=== PATIENT | female | born 1965 | race American Indian/Alaskan Native ===

== ENCOUNTER 2019-09-16 09:34 | Emergency (ER) | payer BC, OTHER ==
[2019-09-16] MEDS ORDERED: Lidocaine 2% Viscous Solution 15 ML Cup PO ONE (09:46)
[2019-09-16] MEDS ORDERED: Clindamycin HCl 150 MG Cap PO ONE (09:46)
[2019-09-16] MEDS ORDERED: Ibuprofen 800 MG Tab PO ONE (09:47)
[2019-09-16 09:50] VITALS: BP 158/116; PULSE 63
--- NOTE | 2019-09-16 09:51 | EDM.PDOC ---
Scribed by Malu Page 09/16/19 0951 for Don Vega MD ED HPI GENERAL MEDICAL PROBLEM - General Chief Complaint: ENT Problem Stated Complaint: TOOTHACHE Time Seen by Provider: 09/16/19 09:40 Source of Information: Reports: Patient, RN, RN Notes Reviewed History Limitations: Reports: No Limitations - History of Present Illness INITIAL COMMENTS - FREE TEXT/NARRATIVE: Patient presents to ER via POV with dental pain for several days. It began to swell today. Denies fever. Denies any drainage from the gum. Onset: Gradual Duration: Constant Location: Reports: Other (toothache) Quality: Reports: Ache Severity: Moderate Improves with: Reports: None Worsens with: Reports: None Associated Symptoms: Reports: No Other Symptoms Tooth/Teeth Pain Score (Numeric/FACES): 10 - Related Data Allergies Allergy/AdvReac Type Severity Reaction Status Date / Time cat dander Allergy Other Verified 09/16/19 09:47 cephalexin monohydrate Allergy Nausea Verified 09/16/19 09:47 [From Keflex] codeine Allergy Vomiting Verified 09/16/19 09:47 HAYFEVER Allergy Other Uncoded 09/16/19 09:47 Home Meds: Home Meds Hydrochlorothiazide 25 mg PO DAILY 01/28/15 [History] Lisinopril 12.5 mg PO DAILY 05/25/15 [History] Acetaminophen [Tylenol Extra Strength] 1,500 mg PO ONETIME PRN 08/29/16 [History ] Fluticasone Propionate 1 spray NASBOTH ASDIRECTED PRN 09/14/16 [History] Loratadine 10 mg PO DAILY PRN 09/14/16 [History] Polyethylene Glycol 3350 [Miralax] 17 g PO .[id number] PRN 09/14/16 [History] oxyCODONE HCl/Acetaminophen [Percocet 5-325 mg Tablet] 1 tab PO Q6H PRN [History] Fluocinonide [Lidex 0.05% Crm] 1 applic TOP ASDIRECTED 12/22/17 [History] Past Medical History HEENT History: Reports: Impaired Vision, Other (See Below) Other HEENT History: WEARS CORRECTIVE LENS Cardiovascular History: Reports: Hypertension Respiratory History: Reports: None Gastrointestinal History: Reports: None, Helicobacter Pylori Genitourinary History: Reports: None [employer] OPERATOR History: Reports: Musculoskeletal History: Reports: None, Other (See Below) Other Musculoskeletal History: herniated disc Neurological History: Reports: None Psychiatric History: Reports: None Endocrine/Metabolic History: Reports: Obesity/BMI 30+, Vitamin D Deficiency Hematologic History: Reports: None Immunologic History: Reports: None Oncologic (Cancer) History: Reports: None Dermatologic History: Reports: Eczema - Infectious Disease History Infectious Disease History: Reports: Chicken Pox, Helicobacter Pylori, Measles, Mumps - Past Surgical History Head Surgeries/Procedures: Reports: None HEENT Surgical History: Reports: Naso-Sinus Surgery, Tonsillectomy Cardiovascular Surgical History: Reports: None GI Surgical History: Reports: Cholecystectomy, Colonoscopy Female Surgical History: Reports: Section Musculoskeletal Surgical History: Reports: Carpal Tunnel, Other (See Below) Other Musculoskeletal Surgeries/Procedures:: RIGHT CARPAL TUNNEL Social & Family History - Family History HEENT: Reports: None Cardiac: Reports: Heart Failure, Hypertension Respiratory: Reports: Asthma GI: Reports: Diverticulitis : Reports: None OBGYN: Reports: None Musculoskeletal: Reports: Arthritis Neurological: Reports: None Psychiatric: Reports: None Endocrine/Metabolic: Reports: Diabetes, type II Hematologic: Reports: None Immunologic: Reports: None Dermatologic: Reports: Eczema Oncologic: Reports: None - Caffeine Use Caffeine Use: Reports: Coffee ED ROS ENT - Review of Systems Review Of Systems: Comprehensive ROS is negative, except as noted in HPI. ED EXAM, ENT - Physical Exam Exam: See Below Exam Limited By: No Limitations General Appearance: Alert, WD/WN, No Apparent Distress Ears: Normal External Exam Nose: Normal Inspection Mouth/Throat: Normal Lips, Dental Abcess (Rt maxillary premolar), Dental Pain, Dental Tenderness, Gum Swelling Head: Atraumatic, Normocephalic Neck: Normal Inspection Respiratory/Chest: No Respiratory Distress Cardiovascular: Regular Rate, Rhythm Course - Vital Signs Last Recorded V/S: Last Vital Signs Temp 97.9 F 09/16/19 09:48 Pulse 63 09/16/19 09:48 Resp 16 09/16/19 09:48 BP 158/116 H 09/16/19 09:48 Pulse Ox 100 09/16/19 09:48 - Orders/Labs/Meds Meds: Medications Discontinued Medications Generic Name Dose Route Start Last Admin Trade Name Freq PRN Reason Stop Dose Admin Clindamycin HCl 300 mg 09/16/19 09:46 Cleocin PO 09/16/19 09:47 ONETIME ONE Ibuprofen 800 mg 09/16/19 09:47 Motrin PO 09/16/19 09:48 ONETIME ONE Lidocaine HCl 15 ml 09/16/19 09:46 Xylocaine 2% Viscous PO 09/16/19 09:47 ONETIME ONE Departure - Departure Time of Disposition: 09:47 Disposition: Home, Self-Care 01 Condition: Good Clinical Impression: Dental abscess - Discharge Information *PRESCRIPTION DRUG MONITORING PROGRAM REVIEWED*: Not Applicable *COPY OF PRESCRIPTION DRUG MONITORING REPORT IN PATIENT KIMBERLEY: Not Applicable Instructions: Dental Abscess, [id number] Forms: ED Department Discharge Additional Instructions: RX: Clindamycin 300mg. RX: Viscus Lidocaine 2%. RX: Tylenol #3. Follow up with dentist tomorrow. Sepsis Event Note - Focused Exam Vital Signs: Vital Signs Temp Pulse Resp BP Pulse Ox 09/16/19 09:48 97.9 F 63 16 158/116 H 100 Date Exam was Performed: 09/16/19 Time Exam was Performed: 09:50 I have read and agree with the documentation that has been completed regarding this visit. By signing this record, I attest that the documentation was completed in my physical presence and is an accurate record of the encounter.
== END 2019-09-16 10:07 | disposition home or self-care (01) ==
LOC: DL.ED 09:34
DX: K04.7 Periapical abscess without sinus (principal); I10 Essential (primary) hypertension; E66.9 Obesity, unspecified; Z79.899 Other long term (current) drug therapy; Z88.5 Allergy status to narcotic agent; Z88.1 Allergy status to other antibiotic agents; Z91.09 Other allergy status, other than to drugs and biological substances
CPT/HCPCS: 99282; A9270

== ENCOUNTER 2019-09-16 17:10 | Emergency (ER) | payer BC, OTHER ==
[2019-09-16] MEDS ORDERED: Acetaminophen/HYDROcodone 325-10 MG Tab PO ONE (17:11)
[2019-09-16 17:26] VITALS: BP 151/69; PULSE 55
[2019-09-16] MEDS ORDERED: Sodium Chloride 0.9% 10 ML Syringe FLUSH PRN (17:31)
[2019-09-16] MEDS ORDERED: Sodium Chloride 0.9% 1,000 ML IV ONE (17:31)
[2019-09-16] MEDS ORDERED: Piperacillin/Tazobactam 4.5 GM in Sodium Chloride 0.9% 100 ML IV ONE (17:32)
[2019-09-16] MEDS ORDERED: diphenhydrAMINE 50 MG/ML SDV IVPUSH ONE (17:35)
[2019-09-16] MEDS ORDERED: Dexamethasone 4 MG/ML SDV IVPUSH ONE (17:35)
[2019-09-16] MEDS ORDERED: HYDROmorphone 1 MG/ML Syringe IVPUSH ONE (17:36)
[2019-09-16 18:18] LABS: ANION GAP 10.4; CHLORIDE,CL 106 mmol/L (101-111); SODIUM,NA 140 mmol/L (135-145)
--- NOTE | 2019-09-16 18:36 | EDM.PDOC ---
Scribed by Malu Page 09/16/19 7924 for Don Vega MD ED HPI GENERAL MEDICAL PROBLEM - General Chief Complaint: ENT Problem Stated Complaint: ABSESS Time Seen by Provider: 09/16/19 17:35 Source of Information: Reports: Patient, RN, RN Notes Reviewed History Limitations: Reports: No Limitations - History of Present Illness INITIAL COMMENTS - FREE TEXT/NARRATIVE: Patient presents to ER stating that her abscessed tooth has more swelling and more pain. She was evaluated this A.M. and sent home on antibiotics with instructions to return if any worse. Patient went home to take a nap, took 3 antibiotic tabs but woke up with increased pain and swelling. 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, NSAIDS Right Face/Facial Pain Score (Numeric/FACES): 8 - Related Data Allergies Allergy/AdvReac Type Severity Reaction Status Date / Time cat dander Allergy Other Verified 09/16/19 17:34 cephalexin monohydrate Allergy Nausea Verified 09/16/19 17:34 [From Keflex] codeine Allergy Vomiting Verified 09/16/19 17:34 HAYFEVER Allergy Other Uncoded 09/16/19 09:47 Home Meds: Home Meds Hydrochlorothiazide 25 mg PO DAILY 01/28/15 [History] Lisinopril 12.5 mg PO DAILY 05/25/15 [History] Acetaminophen [Tylenol Extra Strength] 1,500 mg PO ONETIME PRN 08/29/16 [History ] Fluticasone Propionate 1 spray NASBOTH ASDIRECTED PRN 09/14/16 [History] Loratadine 10 mg PO DAILY PRN 09/14/16 [History] Polyethylene Glycol 3350 [Miralax] 17 g PO .[id number] PRN 09/14/16 [History] oxyCODONE HCl/Acetaminophen [Percocet 5-325 mg Tablet] 1 tab PO Q6H PRN [History] Fluocinonide [Lidex 0.05% Crm] 1 applic TOP ASDIRECTED 12/22/17 [History] Past Medical History HEENT History: Reports: Impaired Vision, Other (See Below) Other HEENT History: WEARS CORRECTIVE LENS Cardiovascular History: Reports: Hypertension Respiratory History: Reports: None Gastrointestinal History: Reports: None, Helicobacter Pylori Genitourinary History: Reports: None [employer]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: Musculoskeletal History: Reports: None, Other (See Below) Other Musculoskeletal History: herniated disc Neurological History: Reports: None Psychiatric History: Reports: None Endocrine/Metabolic History: Reports: Obesity/BMI 30+, Vitamin D Deficiency Hematologic History: Reports: None Immunologic History: Reports: None Oncologic (Cancer) History: Reports: None Dermatologic History: Reports: Eczema - Infectious Disease History Infectious Disease History: Reports: Chicken Pox, Helicobacter Pylori, Measles, Mumps - Past Surgical History Head Surgeries/Procedures: Reports: None HEENT Surgical History: Reports: Naso-Sinus Surgery, Tonsillectomy Cardiovascular Surgical History: Reports: None GI Surgical History: Reports: Cholecystectomy, Colonoscopy Female Surgical History: Reports: Section Musculoskeletal Surgical History: Reports: Carpal Tunnel, Other (See Below) Other Musculoskeletal Surgeries/Procedures:: RIGHT CARPAL TUNNEL Social & Family History - Family History Family Medical History: Noncontributory HEENT: Reports: None Cardiac: Reports: Heart Failure, Hypertension Respiratory: Reports: Asthma GI: Reports: Diverticulitis : Reports: None OBGYN: Reports: None Musculoskeletal: Reports: Arthritis Neurological: Reports: None Psychiatric: Reports: None Endocrine/Metabolic: Reports: Diabetes, type II Hematologic: Reports: None Immunologic: Reports: None Dermatologic: Reports: Eczema Oncologic: Reports: None - Caffeine Use Caffeine Use: Reports: Coffee ED ROS ENT - Review of Systems Review Of Systems: Comprehensive ROS is negative, except as noted in HPI. ED EXAM, ENT - Physical Exam Exam: See Below Exam Limited By: No Limitations General Appearance: Alert, WD/WN, No Apparent Distress, Anxious Eye Exam: Bilateral Eye: EOMI, Normal Inspection, PERRL Ears: Normal External Exam. No: Mastoid Swelling, Mastoid Tenderness Nose: Normal Inspection, Normal Mucousa, No Blood Mouth/Throat: Normal Lips, Normal Oropharynx, Dental Abcess (Right maxillary premolar), Dental Pain, Dental Tenderness, Gum Swelling (Adj. to right maxillary premolar). No: Drooling, Hoarse Voice Head: Atraumatic, Normocephalic, Facial Swelling (Rt face swelling, not involving the periorbital area), Facial Tenderness Neck: Normal Inspection, Supple, Non-Tender, Full Range of Motion. No: Lymphadenopathy (L), Lymphadenopathy (R) Respiratory/Chest: No Respiratory Distress, Lungs Clear, Normal Breath Sounds, No Accessory Muscle Use, Chest Non-Tender Cardiovascular: Regular Rate, Rhythm, No Edema, No Murmur, Bradycardia Neurological: Alert, Oriented, CN II-XII Intact, Normal Cognition, Normal Gait, No Motor/Sensory Deficits Psychiatric: Normal Affect, Anxious Course - Vital Signs Last Recorded V/S: Last Vital Signs Temp 98.3 F 09/16/19 17:25 Pulse 55 L 09/16/19 17:25 Resp 16 09/16/19 17:25 BP 151/69 H 09/16/19 17:25 Pulse Ox 98 09/16/19 17:25 - Orders/Labs/Meds Orders: Active Orders 24 hr Category Date Time Status Peripheral IV Care [RC] . DIRECTED Care 09/16/19 17:31 Active Sodium Chloride 0.9% [Saline Flush] Med 09/16/19 17:31 Active 10 ml FLUSH ASDIRECTED PRN Peripheral IV Insertion Adult [OM.PC] Stat Oth 09/16/19 17:31 Ordered Medication Orders Sodium Chloride (Saline Flush) 10 ml FLUSH ASDIRECTED PRN PRN Reason: Keep Vein Open Labs: Laboratory Tests 09/16/19 09/16/19 09/16/19 Range/Units 17:52 17:52 17:52 WBC 13.0 H (5.0-10.0) 10^3/uL RBC 4.65 (4.2-5.4) 10^6/uL Hgb 14.1 (12.0-16.0) g/dL Hct 41.9 (37.0-47.0) % MCV 90.1 (80-100) fL MCH 30.3 (27.0-34.0) pg MCHC 33.7 (33.0-35.0) g/dL Plt Count 244 (150-450) 10^3/uL Neut % (Auto) 63.7 (42.2-75.2) % Lymph % (Auto) 26.4 (20.5-50.1) % [place] % (Auto) 8.2 H (2-8) % Eos % (Auto) 1.5 (1.0-3.0) % Baso % (Auto) 0.2 (0.0-1.0) % Sodium 140 (135-145) mmol/L Potassium 3.4 L (3.6-5.0) mmol/L Chloride 106 (101-111) mmol/L Carbon Dioxide 27.0 (21.0-31.0) mmol/L Anion Gap 10.4 BUN 12 (7-18) mg/dL Creatinine 0.7 (0.6-1.3) mg/dL Est Cr Clr Drug Dosing 83.63 mL/min Estimated GFR (MDRD) > 60 Glucose 99 (74-105) mg/dL Calcium 9.0 (8.4-10.2) mg/dl C-Reactive Protein 0.8 (0.0-1.3) mg/dL Meds: Medications Generic Name Dose Route Start Last Admin Trade Name Freq PRN Reason Stop Dose Admin Sodium Chloride 10 ml 09/16/19 17:31 Saline Flush FLUSH ASDIRECTED PRN Keep Vein Open Discontinued Medications Generic Name Dose Route Start Last Admin Trade Name Freq PRN Reason Stop Dose Admin Dexamethasone 20 mg 09/16/19 17:35 09/16/19 18:02 Dexamethasone IVPUSH 09/16/19 17:36 20 mg ONETIME ONE Administration Diphenhydramine HCl 25 mg 09/16/19 17:35 09/16/19 18:00 Benadryl IVPUSH 09/16/19 17:36 25 mg ONETIME ONE Administration Hydromorphone HCl 1 mg 09/16/19 17:36 09/16/19 17:47 Dilaudid IVPUSH 09/16/19 17:37 1 mg ONETIME ONE Administration Piperacillin Sod/Tazobactam 100 mls @ 200 mls/hr 09/16/19 17:32 09/16/19 18: 08 Sod 4.5 gm/ Sodium Chloride IV 09/16/19 18:01 200 mls/hr ONETIME ONE Administration Sodium Chloride 1,000 mls @ 999 mls/hr 09/16/19 17:31 09/16/19 17:47 Normal Saline IV 09/16/19 18:31 999 mls/hr .BOLUS ONE Administration Departure - Departure Time of Disposition: 19:00 Disposition: Home, Self-Care 01 Condition: Fair Clinical Impression: Dental abscess, Facial cellulitis - Discharge Information *PRESCRIPTION DRUG MONITORING PROGRAM REVIEWED*: No *COPY OF PRESCRIPTION DRUG MONITORING REPORT IN PATIENT KIMBERLEY: No Instructions: Dental Abscess, [id number], Cellulitis, Adult, Lqbu-[id number] Forms: ED Department Discharge Additional Instructions: Rx: Decadron 4mg Vicodin (Hydrocodone APAP) 10mg/325mg Continue Clindamycin 300mg as prescribed. Follow up at the dental clinic in the morning. Sepsis Event Note - Evaluation Sepsis Screening Result: No Definite Risk - Focused Exam Vital Signs: Vital Signs Temp Pulse Resp BP Pulse Ox 09/16/19 17:25 98.3 F 55 L 16 151/69 H 98 Date Exam was Performed: 09/16/19 Time Exam was Performed: 18:33 - My Orders Last 24 Hours: My Active Orders 09/16/19 17:31 Peripheral IV Care [RC] . DIRECTED Sodium Chloride 0.9% [Saline Flush] 10 ml FLUSH ASDIRECTED PRN Peripheral IV Insertion Adult [OM.PC] Stat - Assessment/Plan Last 24 Hours: My Active Orders 09/16/19 17:31 Peripheral IV Care [RC] . DIRECTED Sodium Chloride 0.9% [Saline Flush] 10 ml FLUSH ASDIRECTED PRN Peripheral IV Insertion Adult [OM.PC] Stat I have read and agree with the documentation that has been completed regarding this visit. By signing this record, I attest that the documentation was completed in my physical presence and is an accurate record of the encounter.
[2019-09-16] MEDS ORDERED: Acetaminophen/HYDROcodone 325-10 MG Tab ONE (18:40)
== END 2019-09-16 19:25 | disposition home or self-care (01) ==
LOC: DL.ED 17:10
DX: K04.7 Periapical abscess without sinus (principal); L03.211 Cellulitis of face; I10 Essential (primary) hypertension; E66.9 Obesity, unspecified; Z91.09 Other allergy status, other than to drugs and biological substances; Z88.1 Allergy status to other antibiotic agents
CPT/HCPCS: 36415; 80048; 85025; 86140; 96361; 96365; 96375; 99283; A9270; J1100; J1170; J1200; J2543; J7030; J7050

== ENCOUNTER 2020-12-16 21:16 | Emergency (ER) | payer BC, OTHER ==
--- NOTE | 2020-12-16 22:45 | EDM.PDOC ---
ED HPI GENERAL MEDICAL PROBLEM - General Chief Complaint: Abdominal Pain Stated Complaint: SEVERE PAIN / GALL BLADDER IS OUT Time Seen by Provider: 12/16/20 22:15 Source of Information: Reports: Patient History Limitations: Reports: No Limitations - History of Present Illness INITIAL COMMENTS - FREE TEXT/NARRATIVE: ED with c/o mid epigastric/RUQ pain since 1pm today, slight nausea no vomiting, No fever or chills. No urinary c/o Feels similar to gallbladder but has had it removed. Hx acid reflux , Tried pepcid and maybe some improvement. rates pain 9/10. describes as constant pressure and burning. Epigastric Pain Score (Numeric/FACES): 10 - Related Data Allergies Allergy/AdvReac Type Severity Reaction Status Date / Time cat dander Allergy Other Verified 09/16/19 17:34 cephalexin monohydrate Allergy Nausea Verified 09/16/19 17:34 [From Keflex] codeine Allergy Vomiting Verified 09/16/19 17:34 HAYFEVER Allergy Other Uncoded 09/16/19 09:47 Home Meds: Home Meds Hydrochlorothiazide 25 mg PO DAILY 01/28/15 [History] Lisinopril 12.5 mg PO DAILY 05/25/15 [History] Acetaminophen [Tylenol Extra Strength] 1,500 mg PO ONETIME PRN 08/29/16 [History] Fluticasone Propionate 1 spray NASBOTH ASDIRECTED PRN 09/14/16 [History] Loratadine 10 mg PO DAILY PRN 09/14/16 [History] oxyCODONE HCl/Acetaminophen [Percocet 5-325 mg Tablet] 1 tab PO Q6H PRN 09/14/16 [History] polyethylene glycoL 3350 [Miralax] 17 g PO .[id number] PRN 09/14/16 [History] Fluocinonide [Lidex 0.05% Crm] 1 applic TOP ASDIRECTED 12/22/17 [History] Past Medical History HEENT History: Reports: Impaired Vision, Other (See Below) Other HEENT History: WEARS CORRECTIVE LENS Cardiovascular History: Reports: Hypertension Respiratory History: Reports: None Gastrointestinal History: Reports: None, Helicobacter Pylori Genitourinary History: Reports: None 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: Musculoskeletal History: Reports: None, Other (See Below) Other Musculoskeletal History: herniated disc Neurological History: Reports: None Psychiatric History: Reports: None Endocrine/Metabolic History: Reports: Obesity/BMI 30+, Vitamin D Deficiency Hematologic History: Reports: None Immunologic History: Reports: None Oncologic (Cancer) History: Reports: None Dermatologic History: Reports: Eczema - Infectious Disease History Infectious Disease History: Reports: Chicken Pox, Helicobacter Pylori, Measles, Mumps - Past Surgical History Head Surgeries/Procedures: Reports: None HEENT Surgical History: Reports: Naso-Sinus Surgery, Tonsillectomy Cardiovascular Surgical History: Reports: None GI Surgical History: Reports: Cholecystectomy, Colonoscopy Female Surgical History: Reports: Section Musculoskeletal Surgical History: Reports: Carpal Tunnel, Other (See Below) Other Musculoskeletal Surgeries/Procedures:: RIGHT CARPAL TUNNEL Social & Family History - Family History Family Medical History: No Pertinent Family History HEENT: Reports: None Cardiac: Reports: Heart Failure, Hypertension Respiratory: Reports: Asthma GI: Reports: Diverticulitis : Reports: None OBGYN: Reports: None Musculoskeletal: Reports: Arthritis Neurological: Reports: None Psychiatric: Reports: None Endocrine/Metabolic: Reports: Diabetes, type II Hematologic: Reports: None Immunologic: Reports: None Dermatologic: Reports: Eczema Oncologic: Reports: None - Caffeine Use Caffeine Use: Reports: Coffee ED ROS GENERAL - Review of Systems Review Of Systems: Comprehensive ROS is negative, except as noted in HPI. ED EXAM, GI/ABD - Physical Exam Exam: See Below Exam Limited By: No Limitations General Appearance: Alert, No Apparent Distress Ears: Normal External Exam Nose: Normal Inspection Throat/Mouth: Normal Inspection Head: Atraumatic, Normocephalic Respiratory/Chest: No Respiratory Distress Cardiovascular: Normal Peripheral Pulses, Regular Rate, Rhythm GI/Abdominal Exam: Normal Bowel Sounds, Soft, Tender (mid epigastric RUQ). No: Distended, Guarding, Rebound Back Exam: Normal Inspection Extremities: Normal Inspection Neurological: Alert, Oriented, Normal Cognition Psychiatric: Normal Affect, Normal Mood Skin Exam: Warm, Dry, Intact, Normal Color Course - Vital Signs Last Recorded V/S: Last Vital Signs Temp 97 F 12/17/20 01:05 Pulse 80 12/17/20 01:05 Resp 16 12/17/20 01:05 BP 116/75 12/17/20 01:05 Pulse Ox 99 12/17/20 01:05 - Orders/Labs/Meds Labs: Laboratory Tests 05/06/2812/16/20 12/16/20 Range/Units 22:51 22:51 22:51 WBC 15.5 H (5.0-10.0) 10^3/uL RBC 5.10 (4.2-5.4) 10^6/uL Hgb 15.2 (12.0-16.0) g/dL Hct 46.3 (37.0-47.0) % MCV 90.8 (80-100) fL MCH 29.8 (27.0-34.0) pg MCHC 32.8 L (33.0-35.0) g/dL Plt Count 290 (150-450) 10^3/uL Neut % (Auto) 72.2 (42.2-75.2) % Lymph % (Auto) 20.3 L (20.5-50.1) % [place] % (Auto) 5.2 (2-8) % Eos % (Auto) 2.1 (1.0-3.0) % Baso % (Auto) 0.2 (0.0-1.0) % Sodium 144 (136-145) mmol/L Potassium 3.3 L (3.5-5.1) mmol/L Chloride 106 (98-107) mmol/L Carbon Dioxide 29 (21-32) mmol/L Anion Gap 12.3 (7-13) mEq/L BUN 12 (7-18) mg/dL Creatinine 0.89 (0.55-1.02) mg/dL Est Cr Clr Drug Dosing 65.02 mL/min Estimated GFR (MDRD) > 60 BUN/Creatinine Ratio 13.5 (No establ ref range) Glucose 136 H (70-99) mg/dL Lactic Acid 1.3 (0.4-2.0) mmol/L Calcium 8.6 (8.5-10.1) mg/dL Total Bilirubin 0.4 (0.2-1.0) mg/dL AST 11 L (15-37) U/L ALT 26 (14-59) U/L Alkaline Phosphatase 97 (46-116) U/L Total Protein 7.3 (6.4-8.2) g/dL Albumin 3.4 (3.4-5.0) g/dL Globulin 3.9 Albumin/Globulin Ratio 0.9 Amylase 34 (25-115) U/L Lipase 85 (73-393) U/L Urine Color (YELLOW) Urine Appearance (CLEAR) Urine pH (5.0-9.0) Ur Specific [place] (1.005-1.030) Urine Protein (NEGATIVE) Urine Glucose (UA) (NEGATIVE) Urine Ketones (NEGATIVE) Urine Occult Blood (NEGATIVE) Urine Nitrite (NEGATIVE) Urine Bilirubin (NEGATIVE) Urine Urobilinogen (0.2-1.0) mg/dL Ur Leukocyte Esterase (NEGATIVE) 12/16/20 Range/Units 23:10 WBC (5.0-10.0) 10^3/uL RBC (4.2-5.4) 10^6/uL Hgb (12.0-16.0) g/dL Hct (37.0-47.0) % MCV (80-100) fL MCH (27.0-34.0) pg MCHC (33.0-35.0) g/dL Plt Count (150-450) 10^3/uL Neut % (Auto) (42.2-75.2) % Lymph % (Auto) (20.5-50.1) % [place] % (Auto) (2-8) % Eos % (Auto) (1.0-3.0) % Baso % (Auto) (0.0-1.0) % Sodium (136-145) mmol/L Potassium (3.5-5.1) mmol/L Chloride (98-107) mmol/L Carbon Dioxide (21-32) mmol/L Anion Gap (7-13) mEq/L BUN (7-18) mg/dL Creatinine (0.55-1.02) mg/dL Est Cr Clr Drug Dosing mL/min Estimated GFR (MDRD) BUN/Creatinine Ratio (No establ ref range) Glucose (70-99) mg/dL Lactic Acid (0.4-2.0) mmol/L Calcium (8.5-10.1) mg/dL Total Bilirubin (0.2-1.0) mg/dL AST (15-37) U/L ALT (14-59) U/L Alkaline Phosphatase (46-116) U/L Total Protein (6.4-8.2) g/dL Albumin (3.4-5.0) g/dL Globulin Albumin/Globulin Ratio Amylase (25-115) U/L Lipase (73-393) U/L Urine Color Yellow (YELLOW) Urine Appearance Clear (CLEAR) Urine pH 6.0 (5.0-9.0) Ur Specific [place] >= 1.030 (1.005-1.030) Urine Protein Negative (NEGATIVE) Urine Glucose (UA) Negative (NEGATIVE) Urine Ketones Negative (NEGATIVE) Urine Occult Blood Negative (NEGATIVE) Urine Nitrite Negative (NEGATIVE) Urine Bilirubin Small H (NEGATIVE) Urine Urobilinogen 1.0 (0.2-1.0) mg/dL Ur Leukocyte Esterase Negative (NEGATIVE) Meds: Medications Discontinued Medications Generic Name Dose Route Start Last Admin Trade Name Freq PRN Reason Stop Dose Admin Famotidine 20 mg 12/16/20 23:24 12/16/20 23:41 Famotidine 20 Mg/2 Ml Sdv IVPUSH 12/16/20 23:25 20 mg ONETIME ONE Administration Fentanyl 50 mcg 12/16/20 23:24 12/16/20 23:41 Fentanyl 100 Mcg/2 Ml Sdv IVPUSH 12/16/20 23:25 50 mcg ONETIME ONE Administration Sodium Chloride 1,000 mls @ 500 mls/hr 12/16/20 23:24 12/16/20 23:39 Normal Saline IV 12/17/20 01:23 500 mls/hr .BOLUS ONE Administration Iopamidol 100 ml 12/17/20 00:03 Iopamidol 612 Mg/Ml 100 Ml Bottle IVPUSH 12/17/20 00:04 ONETIME ONE Departure - Departure Time of Disposition: 00:42 Disposition: Home, Self-Care 01 Condition: Good Clinical Impression: Epigastric pain - Discharge Information *PRESCRIPTION DRUG MONITORING PROGRAM REVIEWED*: No *COPY OF PRESCRIPTION DRUG MONITORING REPORT IN PATIENT KIMBERLEY: No Instructions: Constipation, Adult, [id number], Abdominal Pain, Adult, [id number] Forms: ED Department Discharge Additional Instructions: clear liquid diet advance as tolerated bland, low acid low caffeine diet clinic recheck as needed omeprazole or similar daily for 2 weeks Sepsis Event Note (ED) - Evaluation Sepsis Screening Result: No Definite Risk - Focused Exam Vital Signs: Vital Signs Temp Pulse Resp BP Pulse Ox 12/17/20 01:05 97 F 80 16 116/75 99 12/16/20 22:03 98 F 89 20 149/83 H 95
[2020-12-16] MEDS ORDERED: fentaNYL 100 MCG/2 ML SDV IVPUSH ONE (23:24)
[2020-12-16] MEDS ORDERED: Famotidine 20 MG/2 ML SDV IVPUSH ONE (23:24)
[2020-12-16] MEDS ORDERED: Sodium Chloride 0.9% 1,000 ML IV ONE (23:24)
[2020-12-16 23:31] LABS: ANION GAP 12.3 mEq/L (7-13); CHLORIDE,CL 106 mmol/L (98-107); SODIUM,NA 144 mmol/L (136-145)
[2020-12-17] MEDS ORDERED: Iopamidol 612 MG/ML 100 ML Bottle IVPUSH ONE (00:03)
--- NOTE | 2020-12-17 00:28 | CT ---
PROCEDURE INFORMATION: Exam: CT Abdomen And Pelvis With Contrast Exam date and time: 12/16/2020 11:44 PM Age: 55 years old Clinical indication: Abdominal pain; Prior surgery; Additional info: Upper abdominal pain TECHNIQUE: Imaging protocol: Computed tomography of the abdomen and pelvis with contrast. Radiation optimization: All CT scans at this facility use at least one of these dose optimization techniques: automated exposure control; mA and/or kV adjustment per patient size (includes targeted exams where dose is matched to clinical indication); or iterative reconstruction. Contrast material: [id number]; Contrast volume: 75 ml; Contrast route: INTRAVENOUS (IV); COMPARISON: No relevant prior studies available. FINDINGS: Liver: Normal. No mass. Gallbladder and bile ducts: The gallbladder is absent. Pancreas: Normal. No ductal dilation. Spleen: Normal. No splenomegaly. Adrenal glands: Normal. No mass. Kidneys and ureters: Punctate nonobstructive left renal stone. Small area of left renal scarring. No hydronephrosis or hydroureter. Normal bilateral renal parenchymal enhancement. Stomach and bowel: There is mild wall thickening with associated mild mesenteric edema and interloop ascites of multiple loops of small bowel in the pelvis. No bowel obstruction. No pneumatosis. Mild colonic diverticulosis without evidence of acute diverticulitis. Moderate amount of colonic stool. Appendix: Normal appendix. No acute appendicitis. Intraperitoneal space: See "Stomach and bowel" finding. Nonspecific small amount of free fluid dependently in the lower pelvis. No focal fluid collections. No free air. Vasculature: Unremarkable. No abdominal aortic aneurysm. No arterial occlusion. No mesenteric or portal venous gas. Lymph nodes: Unremarkable. No enlarged lymph nodes. Urinary bladder: The bladder is mostly decompressed, limiting assessment. Reproductive: Unremarkable as visualized. Bones/joints: Unremarkable. No acute fracture. Soft tissues: Unremarkable. IMPRESSION: Findings most suggestive of infectious/inflammatory enteritis of multiple loops of small bowel in the pelvis. No mesenteric arterial occlusion, pneumatosis, or mesenteric or portal venous gas to suggest acute bowel ischemia.
[2020-12-17 01:06] VITALS: BP 116/75; PULSE 80
== END 2020-12-17 01:06 | disposition home or self-care (01) ==
LOC: DL.ED 21:16
DX: R10.13 Epigastric pain (principal); E66.9 Obesity, unspecified; I10 Essential (primary) hypertension; Z88.1 Allergy status to other antibiotic agents; Z91.048 Other nonmedicinal substance allergy status; Z88.5 Allergy status to narcotic agent; Z79.899 Other long term (current) drug therapy; Z68.41 Body mass index [BMI] 40.0-44.9, adult
CPT/HCPCS: 36415; 74177; 80053; 81003; 82150; 83605; 83690; 85025; 96374; 96375; 99283; 99284-25; J3010; J3490; J7030; Q9967

== ENCOUNTER 2022-10-17 13:10 | Emergency (ER) | payer BC, OTHER ==
[2022-10-17 13:25] VITALS: BP 147/97; PULSE 88
[2022-10-17 14:03] LABS: CORONAVIRUS COVID-19 NAA NEGATIVE (NEGATIVE); RESPIRATORY SYNCYTIAL VIR NAA NEGATIVE (NEGATIVE)
[2022-10-17] MEDS ORDERED: Azithromycin 250 MG Tab PO ONE (14:18)
== END 2022-10-17 14:24 | disposition home or self-care (01) ==
LOC: DL.ED 13:10
DX: J02.8 Acute pharyngitis due to other specified organisms (principal); I10 Essential (primary) hypertension; E66.9 Obesity, unspecified; Z88.1 Allergy status to other antibiotic agents; Z88.5 Allergy status to narcotic agent; Z91.09 Other allergy status, other than to drugs and biological substances; Z79.899 Other long term (current) drug therapy; Z20.822 Contact with and (suspected) exposure to COVID-19; Z68.41 Body mass index [BMI] 40.0-44.9, adult
CPT/HCPCS: 0241U; 87081; 87430; 99283; 99284; A9270-GY

== ENCOUNTER 2023-11-06 12:20 | Emergency (ER) | payer BC, OTHER ==
[2023-11-06 12:39] VITALS: BP 140/98; PULSE 75
[2023-11-06] MEDS: Amoxicillin/Clavulanate K 875-125 MG Tab PO ONE (13:07)
== END 2023-11-06 13:09 | disposition home or self-care (01) ==
LOC: DL.ED 12:20
DX: J01.10 Acute frontal sinusitis, unspecified (principal); I10 Essential (primary) hypertension; E66.9 Obesity, unspecified; Z91.048 Other nonmedicinal substance allergy status; Z88.1 Allergy status to other antibiotic agents; Z88.5 Allergy status to narcotic agent; Z79.899 Other long term (current) drug therapy; Z90.49 Acquired absence of other specified parts of digestive tract; Z87.891 Personal history of nicotine dependence; Z68.41 Body mass index [BMI] 40.0-44.9, adult
CPT/HCPCS: 99283; A9270

== ENCOUNTER 2023-11-19 14:36 | Emergency (ER) | payer BC, OTHER ==
[2023-11-19] MEDS: Ketorolac 30 MG/ML SDV IM ONE (15:01)
[2023-11-19 15:23] VITALS: BP 154/90; PULSE 90
[2023-11-19] MEDS: Albuterol/Ipratropium 3.0-0.5 MG/3 ML Neb Soln NEB ONE (15:32)
[2023-11-19] MEDS: Take Home: Acetaminophen/HYDROcodone 325-5 MG, 5 Tab Pack PO ONE (15:52)
[2023-11-19] MEDS: Albuterol 6.7 GM Inhaler INH ONE (16:01)
== END 2023-11-19 16:03 | disposition home or self-care (01) ==
LOC: DL.ED 14:36
DX: R07.89 Other chest pain (principal); J40 Bronchitis, not specified as acute or chronic; I10 Essential (primary) hypertension; E66.9 Obesity, unspecified; Z68.41 Body mass index [BMI] 40.0-44.9, adult; Z88.8 Allergy status to other drugs, medicaments and biological substances; Z91.048 Other nonmedicinal substance allergy status; Z79.899 Other long term (current) drug therapy; Z90.49 Acquired absence of other specified parts of digestive tract
CPT/HCPCS: 71046; 94640; 96372; 99285; A9270; J1885; 99284; J7620-GY

== ENCOUNTER 2024-04-16 21:14 | Emergency (ER) | payer BC, OTHER | END 2024-04-16 22:15 | disposition left against medical advice (07) | LOC: DL.ED 21:14 | DX: Z53.21 Procedure and treatment not carried out due to patient leaving prior to being seen by health care provider (principal) ==

== ENCOUNTER 2024-04-17 17:46 | Emergency (ER) | payer BC, OTHER ==
[2024-04-17] MEDS: Benzonatate 100 MG Cap PO ONE (19:38)
[2024-04-17] MEDS: methylPREDNISolone Sodium Succinate 40 MG/1 ML SDV IM ONE (20:37)
[2024-04-17] MEDS: Azithromycin 250 MG Tab PO ONE (21:29)
[2024-04-17 21:34] VITALS: BP 128/85; PULSE 74
== END 2024-04-17 21:31 | disposition home or self-care (01) ==
LOC: DL.ED 17:46
DX: J40 Bronchitis, not specified as acute or chronic (principal); I10 Essential (primary) hypertension; E66.9 Obesity, unspecified; Z68.41 Body mass index [BMI] 40.0-44.9, adult; Z90.49 Acquired absence of other specified parts of digestive tract; Z79.899 Other long term (current) drug therapy; Z91.048 Other nonmedicinal substance allergy status; Z88.1 Allergy status to other antibiotic agents; Z88.5 Allergy status to narcotic agent
CPT/HCPCS: 71046; 87081; 87430; 87804; 96372; 99283; A9270-GY; J2919; U0002

== ENCOUNTER 2024-12-31 14:02 | Emergency (ER) | payer BC, OTHER ==
[2024-12-31 14:12] VITALS: BP 126/106; PULSE 95
[2024-12-31 14:33] LABS: APPEARANCE,URINE CLEAR (CLEAR); BILIRUBIN,URINE NEGATIVE (NEGATIVE); COLOR,URINE YELLOW (YELLOW); GLUCOSE,URINE NEGATIVE (NEGATIVE); KETONES,URINE 15 (NEGATIVE); LEUKOCYTE ESTERASE,URINE NEGATIVE (NEGATIVE); NITRITE,URINE NEGATIVE (NEGATIVE); OCCULT BLOOD,URINE TRACE-INTACT (NEGATIVE); PROTEIN,URINE TRACE (NEGATIVE)
[2024-12-31 14:43] LABS: AMORPHOUS SEDIMENT,URINE FEW /HPF (NOT SEEN); BACTERIA,URINE FEW /HPF (0-FEW/HPF); EPITHELIAL CELLS,URINE FEW /HPF (NOT SEEN); MUCUS,URINE FEW /LPF (NOT SEEN); WBC,URINE 0-5 /HPF (0-5/HPF)
[2024-12-31] MEDS: Acetaminophen 500 MG Tab PO ONE (14:44)
== END 2024-12-31 15:21 | disposition home or self-care (01) ==
LOC: DL.ED 14:02
DX: J01.10 Acute frontal sinusitis, unspecified (principal); J02.8 Acute pharyngitis due to other specified organisms; I10 Essential (primary) hypertension; E66.9 Obesity, unspecified; Z88.8 Allergy status to other drugs, medicaments and biological substances; Z91.048 Other nonmedicinal substance allergy status; Z88.5 Allergy status to narcotic agent; Z79.899 Other long term (current) drug therapy; Z79.51 Long term (current) use of inhaled steroids; Z90.49 Acquired absence of other specified parts of digestive tract; Z68.41 Body mass index [BMI] 40.0-44.9, adult
CPT/HCPCS: 81001; 87081; 87428; 87430; 99283; 99284; A9270